=== PATIENT | male | born 1950 | race African-American/Black ===

== ENCOUNTER 2017-03-24 13:58 | Outpatient (CLI) | payer MEDICARE, BC ==
[2017-03-24 14:45] LABS: #Basophils 0.1 thou/uL (0.0-0.2); #Eosinphils 0.1 thou/uL (0.0-0.7); #Lymphocytes 2.2 thou/uL (1.20-3.40); #Monocytes 0.4 thou/uL (0.11-0.59); #Neutrophils 2.8 thou/uL (1.40-6.50); %Basophils 1.4 % (0.0-1.0); %Eosinophils 1.9 % (0.0-10.0); %Lymphocytes 38.9 % (21.0-51.0); %Monocytes 7.7 % (0.0-10.0); Hemoglobin 14.4 g/dL (14.0-18.0); Mean Corpuscular HGB CONC 32.2 g/dL (32.0-36.0); Mean Corpuscular Hemoglobin 27.5 pg (27.0-31.0); Mean Corpuscular Volume 85.5 fl (80.0-94.0); Platelet Count 160 thou/uL (130-400); RBC Distribution Width 14.3 % (11.5-14.5); Red Blood Cell (RBC) Count 5.22 mill/uL (4.70-6.10); White Blood Cell (WBC) Count 5.6 thou/uL (4.8-10.8)
[2017-03-24 15:05] LABS: ALT (SGPT) 21 U/L (8-55); AST (SGOT) 24 U/L (5-34); Albumin 4.1 g/dL (3.4-4.8); Alkaline Phosphatase 79 U/L (40-150); Anion Gap 13 mmol/L (10-20); BUN (Urea Nitrogen) 13 mg/dL (8.4-25.7); Bilirubin, Total 0.5 mg/dL (0.2-1.2); Calc. Creatinine Clearance 0 mL/min (70-130); Calcium 9.8 mg/dL (7.8-10.44); Carbon Dioxide 27 mmol/L (23-31); Cardiac Risk 5.1 (Less than 4.5); Chloride 108 mmol/L (98-107); Cholesterol 174 mg/dl (< 200 Desired); Estimated GFR-MDRD 67; Globulin 3.7 g/dL (2.4-3.5); Glucose 82 mg/dL (80-115); HDL Cholesterol 34 mg/dL (>60 Neg Risk); LDL Cholesterol, Calculated 116 mg/dL; Protein, Total 7.8 g/dL (5.8-8.1); Sodium 144 mmol/L (136-145); Triglycerides 121 mg/dL (Less than 150)
== END 2017-03-24 13:59 | disposition home or self-care (01) ==
LOC: HPCALD 13:58
PROVIDERS: ATTEND Family Medicine
DX: Z12.5 Encounter for screening for malignant neoplasm of prostate (principal); E78.5 Hyperlipidemia, unspecified; I10 Essential (primary) hypertension
CPT/HCPCS: 36415; 80053; 80061; 85025; G0103

== ENCOUNTER 2018-02-11 17:38 | Emergency (ER) | payer MEDICARE, BC ==
[2018-02-11] MEDS ORDERED: Bacitracin Zinc 1 Packet ONE (18:35)
== END 2018-02-11 18:40 | disposition home or self-care (01) ==
LOC: BURERS 17:38
DX: S61.201A Unspecified open wound of left index finger without damage to nail, initial encounter (principal); I10 Essential (primary) hypertension; E78.5 Hyperlipidemia, unspecified; Z79.899 Other long term (current) drug therapy; W26.0XXA Contact with knife, initial encounter
CPT/HCPCS: 99283

== ENCOUNTER 2020-10-18 15:43 | Emergency (ER) | payer MEDICARE, BC | END 2020-10-18 16:19 | disposition home or self-care (01) | LOC: BURERS 15:43 | DX: I10 Essential (primary) hypertension (principal); Z79.899 Other long term (current) drug therapy; Z79.84 Long term (current) use of oral hypoglycemic drugs; E78.5 Hyperlipidemia, unspecified; E11.9 Type 2 diabetes mellitus without complications | CPT/HCPCS: 93005 ==